=== PATIENT | male | born 1975 | race Two or more races ===

== ENCOUNTER 2021-11-04 12:24 | Inpatient (IN) | payer OTHER ==
[2021-11-04 14:20] VITALS: BMI 24.3
[2021-11-04] MEDS ORDERED: LOPERAMIDE HCL 2 MG CAPSULE PO PRN (18:39)
[2021-11-04] MEDS ORDERED: BENZOCAINE/MENTHOL (CHLORASEPTIC ) LOZENGE MM PRN (18:39)
[2021-11-04] MEDS ORDERED: DICYCLOMINE HCL 10 MG CAPSULE PO PRN (18:39)
[2021-11-04] MEDS ORDERED: MAG HYDROX/AL HYDROX/SIMETH 30 ML UNIT-DOSE CUP PO PRN (18:39)
[2021-11-04] MEDS ORDERED: IBUPROFEN 400 MG TABLET (FP) PO PRN (18:39)
[2021-11-04] MEDS ORDERED: NICOTINE 10 MG CARTRIDGE (INHALER) IH PRN (18:39)
[2021-11-04] MEDS ORDERED: MAGNESIUM CITRATE 300 ML BOTTLE PO PRN (18:39)
[2021-11-04] MEDS ORDERED: methaDONE HCL 10 MG TABLET (FOR DETOX USE ONLY) PO ONE (18:39)
[2021-11-04] MEDS ORDERED: BISMUTH SUBSALICYLATE 524 MG/30 ML PO PRN (18:39)
[2021-11-04] MEDS ORDERED: ONDANSETRON *ODT* 4 MG TABLET SL PRN (18:39)
[2021-11-04] MEDS ORDERED: NALOXONE HCL (KLOXXADO) 8 MG SPRAY NS PRN (18:39)
[2021-11-04] MEDS ORDERED: ACETAMINOPHEN 325 MG TABLET (FP) PO PRN ×2 (18:39)
[2021-11-04] MEDS ORDERED: NICOTINE POLACRILEX 2 MG GUM BUC PRN (18:39)
[2021-11-04] MEDS ORDERED: cloNIDine HCL 0.1 MG TABLET PO PRN (18:39)
[2021-11-04] MEDS ORDERED: IBUPROFEN 600 MG TABLET (FP) PO PRN (18:39)
[2021-11-04] MEDS ORDERED: MAGNESIUM HYDROX 2400MG/30ML ORAL SUSPENSION 30 ML CUP PO PRN (18:39)
[2021-11-04] MEDS ORDERED: METHOCARBAMOL 500 MG TABLET PO PRN (18:39)
[2021-11-04] MEDS: PRENATAL VITAMINS W/ FOLIC ACID TABLET (FP) PO SCH (19:27)
[2021-11-04] MEDS ORDERED: MELATONIN 5 MG TABLETS PO SCH (22:00)
[2021-11-04] MEDS ORDERED: THIAMINE HCL 100 MG TABLET (FP) PO SCH (22:00)
[2021-11-04] MEDS: hydrOXYzine PAMOATE 25 MG CAPSULE (FP) PO SCH (22:52)
[2021-11-05] MEDS: hydrOXYzine PAMOATE 25 MG CAPSULE (FP) PO SCH ×3 (06:23→15:16)
[2021-11-05 09:59] VITALS: RESP 18
[2021-11-05] MEDS: PRENATAL VITAMINS W/ FOLIC ACID TABLET (FP) PO SCH (10:23)
[2021-11-05 10:56] LABS: ALBUMIN 3.8 g/dl (3.4-5.0); BLOOD UREA NITROGEN 13.8 mg/dL (7-18); CALCIUM 9.3 mg/dL (8.5-10.1)
[2021-11-05 11:00] LABS: BILIRUBIN,TOTAL 0.3 mg/dL (0.2-1); HEMATOCRIT 42.3 % (35.4-49); HEMOGLOBIN 13.8 GM/dL (11.7-16.9); MCHC 32.5 g/dl (32.0-35.9); MEAN PLT VOLUME 9.1 fl (7.5-11.1); PLATELET COUNT 254 10^3/uL (134-434); RDW 14.8 % (11.9-15.9); TOT PROT 6.7 g/dl (6.4-8.2); WHITE BLOOD COUNT 7.1 K/mm3 (4.0-10.0)
[2021-11-05 14:02] VITALS: BP 104/53; PULSE 57; TEMP 97.4
[2021-11-06] MEDS ORDERED: methaDONE HCL 10 MG TABLET (FOR DETOX USE ONLY) PO ONE (10:00)
[2021-11-08] MEDS ORDERED: methaDONE HCL 10 MG TABLET (FOR DETOX USE ONLY) PO ONE (10:00)
== END 2021-11-05 17:46 | disposition left against medical advice (07) | DRG 770 ==
LOC: YASAS 12:24 → Y6N 18:30
PROVIDERS: ADMIT Allergy & Immunology; ATTEND Surgery
PROC: HZ2ZZZZ Detoxification Services for Substance Abuse Treatment (ICD-10-PCS; principal; 2021-11-04)
DX: F11.23 Opioid dependence with withdrawal (principal); F12.20 Cannabis dependence, uncomplicated; F17.210 Nicotine dependence, cigarettes, uncomplicated
CPT/HCPCS: 36415; 80053; 85027; 86780; C9803-CS; U0003; U0005

== ENCOUNTER 2021-12-06 12:04 | Inpatient (IN) | payer OTHER ==
[2021-12-06 12:59] VITALS: BMI 25.7
[2021-12-06] MEDS ORDERED: IBUPROFEN 400 MG TABLET (FP) PO PRN (14:50)
[2021-12-06] MEDS ORDERED: ACETAMINOPHEN 325 MG TABLET (FP) PO PRN ×2 (14:50)
[2021-12-06] MEDS ORDERED: MAGNESIUM CITRATE 300 ML BOTTLE PO PRN (14:50)
[2021-12-06] MEDS ORDERED: cloNIDine HCL 0.1 MG TABLET PO PRN (14:50)
[2021-12-06] MEDS ORDERED: BISMUTH SUBSALICYLATE 524 MG/30 ML PO PRN (14:50)
[2021-12-06] MEDS ORDERED: NALOXONE HCL (KLOXXADO) 8 MG SPRAY NS PRN (14:50)
[2021-12-06] MEDS ORDERED: DICYCLOMINE HCL 10 MG CAPSULE PO PRN (14:50)
[2021-12-06] MEDS ORDERED: MAG HYDROX/AL HYDROX/SIMETH 30 ML UNIT-DOSE CUP PO PRN (14:50)
[2021-12-06] MEDS ORDERED: BENZOCAINE/MENTHOL (CHLORASEPTIC ) LOZENGE MM PRN (14:50)
[2021-12-06] MEDS ORDERED: MAGNESIUM HYDROX 2400MG/30ML ORAL SUSPENSION 30 ML CUP PO PRN (14:50)
[2021-12-06] MEDS ORDERED: IBUPROFEN 600 MG TABLET (FP) PO PRN (14:50)
[2021-12-06] MEDS ORDERED: NICOTINE 10 MG CARTRIDGE (INHALER) IH PRN (14:50)
[2021-12-06] MEDS ORDERED: methaDONE HCL 10 MG TABLET (FOR DETOX USE ONLY) PO ONE (14:50)
[2021-12-06] MEDS ORDERED: LOPERAMIDE HCL 2 MG CAPSULE PO PRN (14:50)
[2021-12-06] MEDS: MELATONIN 5 MG TABLETS PO SCH (22:40)
[2021-12-06] MEDS: THIAMINE HCL 100 MG TABLET (FP) PO SCH ×2 (22:40→22:45)
[2021-12-07] MEDS: METHOCARBAMOL 500 MG TABLET PO PRN (09:48)
[2021-12-07] MEDS: PRENATAL VITAMINS W/ FOLIC ACID TABLET (FP) PO SCH (09:48)
[2021-12-07 13:28] LABS: BLOOD UREA NITROGEN 10.6 mg/dL (7-18); CALCIUM 8.6 mg/dL (8.5-10.1)
[2021-12-07 13:32] LABS: CREATININE 0.7 mg/dL (0.55-1.3)
[2021-12-07 13:33] LABS: BILIRUBIN,TOTAL 0.3 mg/dL (0.2-1); TOT PROT 5.5 g/dl (6.4-8.2)
[2021-12-07 13:48] LABS: HEMATOCRIT 37.5 % (35.4-49); MCH 26.9 pg (25.7-33.7); MCHC 32.1 g/dl (32.0-35.9); MEAN CELL VOLUME 83.7 fl (80-96); MEAN PLT VOLUME 9.1 fl (7.5-11.1); PLATELET COUNT 233 10^3/uL (134-434); RBC 4.48 M/mm3 (4.00-5.60); RDW 15.3 % (11.9-15.9); WHITE BLOOD COUNT 7.9 K/mm3 (4.0-10.0)
[2021-12-07] MEDS: MELATONIN 5 MG TABLETS PO SCH (23:12)
[2021-12-07] MEDS: THIAMINE HCL 100 MG TABLET (FP) PO SCH (23:12)
[2021-12-08] MEDS ORDERED: methaDONE HCL 10 MG TABLET (FOR DETOX USE ONLY) PO ONE (10:00)
[2021-12-08] MEDS: PRENATAL VITAMINS W/ FOLIC ACID TABLET (FP) PO SCH (10:16)
[2021-12-08] MEDS: METHOCARBAMOL 500 MG TABLET PO PRN (10:16)
[2021-12-08] MEDS: THIAMINE HCL 100 MG TABLET (FP) PO SCH (21:55)
[2021-12-08] MEDS: MELATONIN 5 MG TABLETS PO SCH (22:58)
[2021-12-09] MEDS: PRENATAL VITAMINS W/ FOLIC ACID TABLET (FP) PO SCH (10:32)
[2021-12-09] MEDS: THIAMINE HCL 100 MG TABLET (FP) PO SCH (22:49)
[2021-12-09] MEDS: MELATONIN 5 MG TABLETS PO SCH (22:50)
[2021-12-10] MEDS ORDERED: methaDONE HCL 10 MG TABLET (FOR DETOX USE ONLY) PO ONE (10:00)
[2021-12-10] MEDS: PRENATAL VITAMINS W/ FOLIC ACID TABLET (FP) PO SCH (10:20)
[2021-12-10] MEDS: THIAMINE HCL 100 MG TABLET (FP) PO SCH (22:27)
[2021-12-10] MEDS: MELATONIN 5 MG TABLETS PO SCH (22:28)
[2021-12-11 09:04] VITALS: BP 118/61; PULSE 58; RESP 18; TEMP 98.2
[2021-12-11] MEDS: PRENATAL VITAMINS W/ FOLIC ACID TABLET (FP) PO SCH (09:19)
== END 2021-12-11 09:30 | disposition home or self-care (01) | DRG 773 ==
LOC: YASAS 12:04 → Y3N 14:56
PROVIDERS: ADMIT Allergy & Immunology; ATTEND Surgery
PROC: HZ2ZZZZ Detoxification Services for Substance Abuse Treatment (ICD-10-PCS; principal; 2021-12-06)
DX: F11.23 Opioid dependence with withdrawal (principal); F12.20 Cannabis dependence, uncomplicated; F17.210 Nicotine dependence, cigarettes, uncomplicated; F41.9 Anxiety disorder, unspecified
CPT/HCPCS: 36415; 80053; 85027; 86780; 87811; 93005; 93010; C9803-CS; U0003; U0005

== ENCOUNTER 2022-01-05 10:04 | Inpatient (IN) | payer OTHER ==
[2022-01-05 11:47] VITALS: BMI 28.5
[2022-01-05] MEDS ORDERED: NALOXONE HCL (KLOXXADO) 8 MG SPRAY NS PRN (11:55)
[2022-01-05] MEDS ORDERED: NICOTINE 10 MG CARTRIDGE (INHALER) IH PRN (11:55)
[2022-01-05] MEDS ORDERED: DICYCLOMINE HCL 10 MG CAPSULE PO PRN (11:55)
[2022-01-05] MEDS ORDERED: BISMUTH SUBSALICYLATE 262 MG/15 ML BTL PO PRN (11:55)
[2022-01-05] MEDS ORDERED: MAGNESIUM HYDROX 2400MG/30ML ORAL SUSPENSION 30 ML CUP PO PRN (11:55)
[2022-01-05] MEDS ORDERED: POLYETHYLENE GLYCOL (HEALTHYLAX) 3350 17 GM PACKET PO PRN (11:55)
[2022-01-05] MEDS ORDERED: IBUPROFEN 600 MG TABLET (FP) PO PRN (11:55)
[2022-01-05] MEDS ORDERED: BENZOCAINE/MENTHOL (CHLORASEPTIC ) LOZENGE MM PRN (11:55)
[2022-01-05] MEDS ORDERED: methaDONE HCL 10 MG TABLET (FOR DETOX USE ONLY) PO ONE (11:55)
[2022-01-05] MEDS ORDERED: LOPERAMIDE HCL 2 MG CAPSULE PO PRN (11:55)
[2022-01-05] MEDS ORDERED: hydrOXYzine PAMOATE 25 MG CAPSULE (FP) PO PRN (11:55)
[2022-01-05] MEDS ORDERED: MAG HYDROX/AL HYDROX/SIMETH 30 ML UNIT-DOSE CUP PO PRN (11:55)
[2022-01-05] MEDS ORDERED: METHOCARBAMOL 500 MG TABLET PO PRN (11:55)
[2022-01-05] MEDS ORDERED: IBUPROFEN 400 MG TABLET (FP) PO PRN (11:55)
[2022-01-05] MEDS ORDERED: cloNIDine HCL 0.1 MG TABLET PO PRN (11:55)
[2022-01-05] MEDS ORDERED: ACETAMINOPHEN 325 MG TABLET (FP) PO PRN ×2 (11:55)
[2022-01-05] MEDS ORDERED: ONDANSETRON *ODT* 4 MG TABLET SL PRN (11:55)
[2022-01-05] MEDS ORDERED: methaDONE HCL 10 MG TABLET (FOR DETOX USE ONLY) ONE (12:51)
[2022-01-05] MEDS: CEPHALEXIN MONOHYDRATE 500 MG CAPSULE (UD) PO SCH ×2 (13:42→22:17)
[2022-01-05] MEDS: PRENATAL VITAMINS W/ FOLIC ACID TABLET (FP) PO SCH (13:42)
[2022-01-05] MEDS: NICOTINE POLACRILEX 4 MG GUM BUC PRN ×2 (17:23→23:12)
[2022-01-05 18:38] LABS: ALBUMIN 3.7 g/dl (3.4-5.0); BLOOD UREA NITROGEN 11.3 mg/dL (7-18); CALCIUM 8.9 mg/dL (8.5-10.1)
[2022-01-05 18:41] LABS: CREATININE 0.9 mg/dL (0.55-1.3); HEMATOCRIT 40.7 % (35.4-49); HEMOGLOBIN 13.4 GM/dL (11.7-16.9); MCH 27.6 pg (25.7-33.7); MCHC 32.9 g/dl (32.0-35.9); MEAN PLT VOLUME 8.7 fl (7.5-11.1); PLATELET COUNT 287 10^3/uL (134-434); RBC 4.85 M/mm3 (4.00-5.60); RDW 15.4 % (11.9-15.9); WHITE BLOOD COUNT 10.7 K/mm3 (4.0-10.0)
[2022-01-05 18:42] LABS: BILIRUBIN,TOTAL 0.2 mg/dL (0.2-1); TOT PROT 6.5 g/dl (6.4-8.2)
[2022-01-05] MEDS: THIAMINE HCL 100 MG TABLET (FP) PO SCH (22:17)
[2022-01-05] MEDS: MELATONIN 5 MG TABLETS PO SCH (22:18)
[2022-01-06] MEDS: CEPHALEXIN MONOHYDRATE 500 MG CAPSULE (UD) PO SCH ×2 (10:03→22:05)
[2022-01-06] MEDS: PRENATAL VITAMINS W/ FOLIC ACID TABLET (FP) PO SCH (10:03)
[2022-01-06] MEDS: MELATONIN 5 MG TABLETS PO SCH (22:05)
[2022-01-06] MEDS: THIAMINE HCL 100 MG TABLET (FP) PO SCH (22:05)
[2022-01-07] MEDS ORDERED: methaDONE HCL 10 MG TABLET (FOR DETOX USE ONLY) PO ONE (10:00)
[2022-01-07] MEDS: PRENATAL VITAMINS W/ FOLIC ACID TABLET (FP) PO SCH (10:12)
[2022-01-07] MEDS: CEPHALEXIN MONOHYDRATE 500 MG CAPSULE (UD) PO SCH ×2 (10:12→22:07)
[2022-01-07] MEDS: THIAMINE HCL 100 MG TABLET (FP) PO SCH (22:07)
[2022-01-07] MEDS: MELATONIN 5 MG TABLETS PO SCH (22:08)
[2022-01-08] MEDS: PRENATAL VITAMINS W/ FOLIC ACID TABLET (FP) PO SCH (10:16)
[2022-01-08] MEDS: CEPHALEXIN MONOHYDRATE 500 MG CAPSULE (UD) PO SCH ×2 (10:16→22:20)
[2022-01-08] MEDS: MELATONIN 5 MG TABLETS PO SCH (22:20)
[2022-01-08] MEDS: THIAMINE HCL 100 MG TABLET (FP) PO SCH (22:20)
[2022-01-09] MEDS ORDERED: methaDONE HCL 10 MG TABLET (FOR DETOX USE ONLY) PO ONE (10:00)
[2022-01-09] MEDS: CEPHALEXIN MONOHYDRATE 500 MG CAPSULE (UD) PO SCH ×2 (10:32→22:12)
[2022-01-09] MEDS: PRENATAL VITAMINS W/ FOLIC ACID TABLET (FP) PO SCH (10:32)
[2022-01-09] MEDS: MELATONIN 5 MG TABLETS PO SCH (22:11)
[2022-01-09] MEDS: THIAMINE HCL 100 MG TABLET (FP) PO SCH (22:12)
[2022-01-10 09:07] VITALS: BP 124/63; PULSE 80; RESP 19; TEMP 98.5
[2022-01-10] MEDS: PRENATAL VITAMINS W/ FOLIC ACID TABLET (FP) PO SCH (09:38)
[2022-01-10] MEDS: CEPHALEXIN MONOHYDRATE 500 MG CAPSULE (UD) PO SCH (09:38)
== END 2022-01-10 09:42 | disposition home or self-care (01) | DRG 773 ==
LOC: YASAS 10:04 → Y3N 12:44
PROVIDERS: ADMIT Allergy & Immunology; ATTEND Surgery
PROC: HZ2ZZZZ Detoxification Services for Substance Abuse Treatment (ICD-10-PCS; principal; 2022-01-05)
DX: F11.23 Opioid dependence with withdrawal (principal); F17.210 Nicotine dependence, cigarettes, uncomplicated; L03.114 Cellulitis of left upper limb
CPT/HCPCS: 36415; 80053; 82947; 83036; 85027; 86780; 87811; C9803-CS; U0003; U0005

== ENCOUNTER 2022-02-04 13:16 | Inpatient (IN) | payer OTHER ==
[2022-02-04] MEDS ORDERED: IBUPROFEN 400 MG TABLET (FP) PO PRN (15:43)
[2022-02-04] MEDS ORDERED: MAGNESIUM HYDROX 2400MG/30ML ORAL SUSPENSION 30 ML CUP PO PRN (15:43)
[2022-02-04] MEDS ORDERED: BENZOCAINE/MENTHOL (CHLORASEPTIC ) LOZENGE MM PRN (15:43)
[2022-02-04] MEDS ORDERED: NICOTINE 21 MG/24 HOURS TOPICAL PATCH TD PRN (15:43)
[2022-02-04] MEDS ORDERED: METHOCARBAMOL 500 MG TABLET PO PRN (15:43)
[2022-02-04] MEDS ORDERED: BISMUTH SUBSALICYLATE 524 MG/30 ML PO PRN (15:43)
[2022-02-04] MEDS ORDERED: DICYCLOMINE HCL 10 MG CAPSULE PO PRN (15:43)
[2022-02-04] MEDS ORDERED: POLYETHYLENE GLYCOL (HEALTHYLAX) 3350 17 GM PACKET PO PRN (15:43)
[2022-02-04] MEDS ORDERED: cloNIDine HCL 0.1 MG TABLET PO PRN (15:43)
[2022-02-04] MEDS ORDERED: methaDONE HCL 10 MG TABLET (FOR DETOX USE ONLY) PO ONE (15:43)
[2022-02-04] MEDS ORDERED: hydrOXYzine PAMOATE 25 MG CAPSULE (FP) PO PRN (15:43)
[2022-02-04] MEDS ORDERED: MAG HYDROX/AL HYDROX/SIMETH 30 ML UNIT-DOSE CUP PO PRN (15:43)
[2022-02-04] MEDS ORDERED: ACETAMINOPHEN 325 MG TABLET (FP) PO PRN ×2 (15:43)
[2022-02-04] MEDS ORDERED: NICOTINE 10 MG CARTRIDGE (INHALER) IH PRN (15:43)
[2022-02-04] MEDS ORDERED: NICOTINE POLACRILEX 4 MG GUM BUC PRN (15:43)
[2022-02-04] MEDS ORDERED: LOPERAMIDE HCL 2 MG CAPSULE PO PRN (15:43)
[2022-02-04] MEDS ORDERED: IBUPROFEN 600 MG TABLET (FP) PO PRN (15:43)
[2022-02-04] MEDS ORDERED: NALOXONE HCL (KLOXXADO) 8 MG SPRAY NS PRN (15:43)
[2022-02-04] MEDS ORDERED: ONDANSETRON *ODT* 4 MG TABLET SL PRN (15:43)
[2022-02-04] MEDS ORDERED: methaDONE HCL 10 MG TABLET (FOR DETOX USE ONLY) ONE (16:37)
[2022-02-04 16:53] VITALS: BMI 27.6
[2022-02-04] MEDS ORDERED: BACITRACIN 15 GM TUBE TOPICAL OINTMENT TP SCH (22:00)
[2022-02-04] MEDS: MELATONIN 5 MG TABLETS PO SCH (22:29)
[2022-02-04] MEDS: THIAMINE HCL 100 MG TABLET (FP) PO SCH (22:29)
[2022-02-04] MEDS: BACITRACIN 0.9 GM PACKET TP SCH (22:55)
[2022-02-05] MEDS: PRENATAL VITAMINS W/ FOLIC ACID TABLET (FP) PO SCH (10:17)
[2022-02-05] MEDS: BACITRACIN 0.9 GM PACKET TP SCH ×2 (10:17→22:11)
[2022-02-05 12:32] LABS: CALCIUM 8.5 mg/dL (8.5-10.1)
[2022-02-05 12:34] LABS: ALBUMIN 2.9 g/dl (3.4-5.0)
[2022-02-05 12:36] LABS: CREATININE 0.8 mg/dL (0.55-1.3)
[2022-02-05 12:38] LABS: BILIRUBIN,TOTAL 0.7 mg/dL (0.2-1); TOT PROT 5.5 g/dl (6.4-8.2)
[2022-02-05 13:28] LABS: HIV INTERPRETATION NEGATIVE (NEGATIVE)
[2022-02-05 13:36] LABS: HEMATOCRIT 43.7 % (35.4-49); HEMOGLOBIN 13.8 GM/dL (11.7-16.9); MCH 26.9 pg (25.7-33.7); MCHC 31.6 g/dl (32.0-35.9); MEAN CELL VOLUME 85.2 fl (80-96); MEAN PLT VOLUME 8.5 fl (7.5-11.1); PLATELET COUNT 278 10^3/uL (134-434); RBC 5.12 M/mm3 (4.00-5.60); WHITE BLOOD COUNT 7.1 K/mm3 (4.0-10.0)
[2022-02-05] MEDS: THIAMINE HCL 100 MG TABLET (FP) PO SCH (22:11)
[2022-02-05] MEDS: MELATONIN 5 MG TABLETS PO SCH (22:11)
[2022-02-06] MEDS ORDERED: methaDONE HCL 10 MG TABLET (FOR DETOX USE ONLY) PO ONE (10:00)
[2022-02-06] MEDS: BACITRACIN 0.9 GM PACKET TP SCH (11:13)
[2022-02-06] MEDS: PRENATAL VITAMINS W/ FOLIC ACID TABLET (FP) PO SCH (11:13)
[2022-02-06 13:14] VITALS: BP 121/59; PULSE 90; RESP 16; TEMP 97.8
[2022-02-08] MEDS ORDERED: methaDONE HCL 10 MG TABLET (FOR DETOX USE ONLY) PO ONE (10:00)
== END 2022-02-06 12:59 | disposition left against medical advice (07) | DRG 770 ==
LOC: YASAS 13:16 → Y3N 16:29
PROVIDERS: ADMIT Allergy & Immunology; ATTEND Surgery
PROC: HZ2ZZZZ Detoxification Services for Substance Abuse Treatment (ICD-10-PCS; principal; 2022-02-04)
DX: F11.23 Opioid dependence with withdrawal (principal); F17.213 Nicotine dependence, cigarettes, with withdrawal; R00.0 Tachycardia, unspecified; Z59.00 Homelessness unspecified
CPT/HCPCS: 36415; 80053; 85027; 86780; 87389; C9803-CS; U0003; U0005

== ENCOUNTER 2022-04-04 19:09 | Inpatient (IN) | payer OTHER ==
[2022-04-04 21:13] VITALS: BMI 25.9
[2022-04-04] MEDS ORDERED: METHOCARBAMOL 500 MG TABLET PO PRN (22:34)
[2022-04-04] MEDS ORDERED: IBUPROFEN 600 MG TABLET (FP) PO PRN (22:34)
[2022-04-04] MEDS ORDERED: IBUPROFEN 400 MG TABLET (FP) PO PRN (22:34)
[2022-04-04] MEDS ORDERED: MAG HYDROX/AL HYDROX/SIMETH 30 ML UNIT-DOSE CUP PO PRN (22:34)
[2022-04-04] MEDS ORDERED: POLYETHYLENE GLYCOL (HEALTHYLAX) 3350 17 GM PACKET PO PRN (22:34)
[2022-04-04] MEDS ORDERED: BENZOCAINE/MENTHOL (CHLORASEPTIC ) LOZENGE MM PRN (22:34)
[2022-04-04] MEDS ORDERED: DICYCLOMINE HCL 10 MG CAPSULE PO PRN (22:34)
[2022-04-04] MEDS ORDERED: BISMUTH SUBSALICYLATE 524 MG/30 ML PO PRN (22:34)
[2022-04-04] MEDS ORDERED: LOPERAMIDE HCL 2 MG CAPSULE PO PRN (22:34)
[2022-04-04] MEDS ORDERED: ACETAMINOPHEN 325 MG TABLET (FP) PO PRN ×2 (22:34)
[2022-04-04] MEDS ORDERED: MAGNESIUM HYDROX 2400MG/30ML ORAL SUSPENSION 30 ML CUP PO PRN (22:34)
[2022-04-04] MEDS ORDERED: ONDANSETRON *ODT* 4 MG TABLET SL PRN (22:34)
[2022-04-04] MEDS ORDERED: NICOTINE POLACRILEX 2 MG GUM BUC PRN (22:34)
[2022-04-04] MEDS ORDERED: NALOXONE HCL (KLOXXADO) 8 MG SPRAY NS PRN (22:34)
[2022-04-05] MEDS ORDERED: cloNIDine HCL 0.1 MG TABLET PO PRN (09:18)
[2022-04-05] MEDS ORDERED: P-EPHED 60MG/TRIPROLIDI 2.5MG TABLET PO PRN (09:19)
[2022-04-05] MEDS ORDERED: PRENATAL VITAMINS W/ FOLIC ACID TABLET (FP) PO SCH (10:00)
[2022-04-05] MEDS ORDERED: methaDONE HCL 10 MG TABLET (FOR DETOX USE ONLY) PO ONE (10:00)
[2022-04-05] MEDS ORDERED: NICOTINE 14 MG/24 HOURS TOPICAL PATCH TD SCH (10:00)
[2022-04-05 12:24] LABS: HEMATOCRIT 42.6 % (35.4-49); HEMOGLOBIN 14.3 GM/dL (11.7-16.9); MCH 27.6 pg (25.7-33.7); MCHC 33.6 g/dl (32.0-35.9); MEAN CELL VOLUME 82.2 fl (80-96); MEAN PLT VOLUME 8.6 fl (7.5-11.1); PLATELET COUNT 291 10^3/uL (134-434); RBC 5.18 M/mm3 (4.00-5.60); WHITE BLOOD COUNT 9.4 K/mm3 (4.0-10.0)
[2022-04-05 12:42] LABS: ALBUMIN 3.4 g/dl (3.4-5.0); BLOOD UREA NITROGEN 16.2 mg/dL (7-18); CALCIUM 8.8 mg/dL (8.5-10.1)
[2022-04-05 12:47] LABS: BILIRUBIN,TOTAL 0.3 mg/dL (0.2-1); TOT PROT 6.8 g/dl (6.4-8.2)
[2022-04-05] MEDS ORDERED: MELATONIN 5 MG TABLETS PO SCH (22:00)
[2022-04-05] MEDS ORDERED: THIAMINE HCL 100 MG TABLET (FP) PO SCH (22:00)
[2022-04-06 06:35] VITALS: RESP 17
[2022-04-06 08:42] VITALS: BP 140/77; PULSE 71; TEMP 96.6
[2022-04-07] MEDS ORDERED: methaDONE HCL 10 MG TABLET (FOR DETOX USE ONLY) PO ONE (10:00)
[2022-04-09] MEDS ORDERED: methaDONE HCL 10 MG TABLET (FOR DETOX USE ONLY) PO ONE (10:00)
== END 2022-04-06 09:19 | disposition left against medical advice (07) | DRG 770 ==
LOC: YASAS 19:09 → UNDOADMIN 22:44 → Y3N 22:44 → UNDOADMIN 04-05 10:00 → Y3N 04-05 10:00
PROVIDERS: ADMIT Allergy & Immunology; ATTEND Surgery
PROC: HZ2ZZZZ Detoxification Services for Substance Abuse Treatment (ICD-10-PCS; principal; 2022-04-03)
DX: F11.23 Opioid dependence with withdrawal (principal); F12.20 Cannabis dependence, uncomplicated; F17.210 Nicotine dependence, cigarettes, uncomplicated
CPT/HCPCS: 36415; 80053; 85027; 86780; C9803-CS; U0003; U0005

== ENCOUNTER 2023-03-11 11:38 | Inpatient (IN) | payer OTHER ==
[2023-03-11 12:00] VITALS: BMI 24.5
[2023-03-11] MEDS ORDERED: NALOXONE HCL 0.4 MG/ML VIAL IM PRN (12:21)
[2023-03-11] MEDS ORDERED: POLYETHYLENE GLYCOL (HEALTHYLAX) 3350 17 GM PACKET PO PRN (12:21)
[2023-03-11] MEDS ORDERED: METHOCARBAMOL 500 MG TABLET PO PRN (12:21)
[2023-03-11] MEDS ORDERED: BENZONATATE 200 MG CAPSULE PO PRN (12:21)
[2023-03-11] MEDS ORDERED: MAG HYDROX/AL HYDROX/SIMETH 30 ML UNIT-DOSE CUP PO PRN (12:21)
[2023-03-11] MEDS ORDERED: guaiFENesin 600 MG TABLET.ER (FP) PO PRN (12:21)
[2023-03-11] MEDS ORDERED: ONDANSETRON *ODT* 4 MG TABLET SL PRN (12:21)
[2023-03-11] MEDS ORDERED: clonazePAM 0.5 MG ODT TABLETS SL PRN (12:21)
[2023-03-11] MEDS ORDERED: LOPERAMIDE HCL 2 MG CAPSULE PO PRN (12:21)
[2023-03-11] MEDS ORDERED: IBUPROFEN 600 MG TABLET (FP) PO PRN (12:21)
[2023-03-11] MEDS ORDERED: IBUPROFEN 400 MG TABLET (FP) PO PRN (12:21)
[2023-03-11] MEDS ORDERED: DICYCLOMINE HCL 10 MG CAPSULE PO PRN (12:21)
[2023-03-11] MEDS ORDERED: NALOXONE HCL (KLOXXADO) 8 MG SPRAY NS PRN (12:21)
[2023-03-11] MEDS ORDERED: cloNIDine HCL 0.1 MG TABLET PO PRN (12:21)
[2023-03-11] MEDS ORDERED: MAGNESIUM HYDROX 2400MG/30ML ORAL SUSPENSION 30 ML CUP PO PRN (12:21)
[2023-03-11] MEDS ORDERED: BISMUTH SUBSALICYLATE 524 MG/30 ML PO PRN (12:21)
[2023-03-11] MEDS ORDERED: hydrOXYzine PAMOATE 25 MG CAPSULE (FP) PO PRN (12:21)
[2023-03-11] MEDS ORDERED: ACETAMINOPHEN 325 MG TABLET (FP) PO PRN (12:21)
[2023-03-11] MEDS ORDERED: NICOTINE POLACRILEX 2 MG GUM BUC PRN (12:21)
[2023-03-11] MEDS ORDERED: BENZOCAINE/MENTHOL (CHLORASEPTIC ) LOZENGE MM PRN (12:21)
[2023-03-11] MEDS ORDERED: methaDONE HCL 10 MG TABLET (FOR DETOX USE ONLY) PO ONE (13:15)
[2023-03-11] MEDS ORDERED: methaDONE HCL 10 MG TABLET (FOR DETOX USE ONLY) ONE (13:56)
[2023-03-11] MEDS ORDERED: PRENATAL VITAMINS W/ FOLIC ACID TABLET (FP) PO ONE (13:56)
[2023-03-11] MEDS: PRENATAL VITAMINS W/ FOLIC ACID TABLET (FP) PO SCH (14:01)
[2023-03-11] MEDS ORDERED: ONDANSETRON *ODT* 4 MG TABLET ONE (14:15)
[2023-03-11] MEDS: THIAMINE HCL 100 MG TABLET (FP) PO SCH (22:48)
[2023-03-11] MEDS: MELATONIN 5 MG TABLETS PO SCH (22:48)
[2023-03-12] MEDS: PRENATAL VITAMINS W/ FOLIC ACID TABLET (FP) PO SCH (10:02)
[2023-03-12 10:37] LABS: HEMATOCRIT 42.9 % (35.4-49); HEMOGLOBIN 13.8 GM/dL (11.7-16.9); MCH 26.6 pg (25.7-33.7); MCHC 32.2 g/dl (32.0-35.9); MEAN CELL VOLUME 82.7 fl (80-96); MEAN PLT VOLUME 8.7 fl (7.5-11.1); PLATELET COUNT 292 10^3/uL (134-434); RBC 5.19 M/mm3 (4.00-5.60); WHITE BLOOD COUNT 9.1 K/mm3 (4.0-10.0)
[2023-03-12 11:11] LABS: POTASSIUM 4.6 mmol/L (3.5-5.1)
[2023-03-12 11:22] LABS: BLOOD UREA NITROGEN 14.2 mg/dL (7-18)
[2023-03-12 11:25] LABS: CREATININE 0.8 mg/dL (0.55-1.3)
[2023-03-12 11:26] LABS: BILIRUBIN,TOTAL 0.2 mg/dL (0.2-1)
[2023-03-12] MEDS ORDERED: FLU VACCINE (FLULAVAL) PF 60 MCG/0.5 ML SYRINGE 2023-2024 IM ONE (13:50)
[2023-03-12] MEDS: MELATONIN 5 MG TABLETS PO SCH (23:48)
[2023-03-12] MEDS: THIAMINE HCL 100 MG TABLET (FP) PO SCH (23:48)
[2023-03-13] MEDS ORDERED: methaDONE HCL 10 MG TABLET (FOR DETOX USE ONLY) PO ONE (10:00)
[2023-03-13] MEDS: PRENATAL VITAMINS W/ FOLIC ACID TABLET (FP) PO SCH (10:10)
[2023-03-13 13:08] VITALS: BP 142/73; PULSE 83; RESP 16; TEMP 97.4
[2023-03-15] MEDS ORDERED: methaDONE HCL 10 MG TABLET (FOR DETOX USE ONLY) PO ONE (10:00)
== END 2023-03-13 14:15 | disposition left against medical advice (07) | DRG 770 ==
LOC: YASAS 11:38 → Y3N 13:36 → Y6N 13:38
PROVIDERS: ADMIT Allergy & Immunology; ATTEND Allergy & Immunology
PROC: HZ2ZZZZ Detoxification Services for Substance Abuse Treatment (ICD-10-PCS; principal; 2023-03-11)
DX: F11.23 Opioid dependence with withdrawal (principal); F12.10 Cannabis abuse, uncomplicated; F17.210 Nicotine dependence, cigarettes, uncomplicated; Z59.02 Unsheltered homelessness
CPT/HCPCS: 36415; 80053; 85027; 86780; 87635; 93005; 93010; Q0162

== ENCOUNTER 2023-06-27 01:13 | Inpatient (IN) | payer OTHER ==
[2023-06-27 02:46] VITALS: BMI 27.0
[2023-06-27] MEDS ORDERED: hydrOXYzine PAMOATE 25 MG CAPSULE (FP) PO PRN (03:39)
[2023-06-27] MEDS ORDERED: MAGNESIUM HYDROX 2400MG/30ML ORAL SUSPENSION 30 ML CUP PO PRN (03:39)
[2023-06-27] MEDS ORDERED: METHOCARBAMOL 500 MG TABLET PO PRN (03:39)
[2023-06-27] MEDS ORDERED: BENZONATATE 200 MG CAPSULE PO PRN (03:39)
[2023-06-27] MEDS ORDERED: BISMUTH SUBSALICYLATE 524 MG/30 ML PO PRN (03:39)
[2023-06-27] MEDS ORDERED: BENZOCAINE/MENTHOL (CHLORASEPTIC ) LOZENGE MM PRN (03:39)
[2023-06-27] MEDS ORDERED: MAG HYDROX/AL HYDROX/SIMETH 30 ML UNIT-DOSE CUP PO PRN (03:39)
[2023-06-27] MEDS ORDERED: IBUPROFEN 600 MG TABLET (FP) PO PRN (03:39)
[2023-06-27] MEDS ORDERED: NICOTINE POLACRILEX 4 MG GUM BUC PRN (03:39)
[2023-06-27] MEDS ORDERED: ACETAMINOPHEN 325 MG TABLET (FP) PO PRN (03:39)
[2023-06-27] MEDS ORDERED: IBUPROFEN 400 MG TABLET (FP) PO PRN (03:39)
[2023-06-27] MEDS ORDERED: NALOXONE HCL 0.4 MG/ML VIAL IM PRN (03:39)
[2023-06-27] MEDS ORDERED: POLYETHYLENE GLYCOL (HEALTHYLAX) 3350 17 GM PACKET PO PRN (03:39)
[2023-06-27] MEDS ORDERED: DICYCLOMINE HCL 10 MG CAPSULE PO PRN (03:39)
[2023-06-27] MEDS ORDERED: guaiFENesin 600 MG TABLET.ER (FP) PO PRN (03:39)
[2023-06-27] MEDS ORDERED: NALOXONE HCL (KLOXXADO) 8 MG SPRAY NS PRN (03:39)
[2023-06-27] MEDS ORDERED: LOPERAMIDE HCL 2 MG CAPSULE PO PRN (03:39)
[2023-06-27] MEDS: ONDANSETRON *ODT* 4 MG TABLET SL PRN (08:58)
[2023-06-27] MEDS ORDERED: methaDONE HCL 10 MG TABLET (FOR DETOX USE ONLY) ONE (09:02)
[2023-06-27] MEDS ORDERED: ONDANSETRON *ODT* 4 MG TABLET ONE (09:03)
[2023-06-27] MEDS: methaDONE HCL 10 MG TABLET PO ONE (09:10)
[2023-06-27] MEDS: cloNIDine HCL 0.1 MG TABLET PO SCH (09:41)
[2023-06-27] MEDS: NICOTINE 21 MG/24 HOURS TOPICAL PATCH TD SCH (09:41)
[2023-06-27] MEDS: PRENATAL VITAMINS W/ FOLIC ACID TABLET (FP) PO SCH (09:41)
[2023-06-27] MEDS ORDERED: PRENATAL VITAMINS W/ FOLIC ACID TABLET (FP) PO ONE (09:43)
[2023-06-27] MEDS ORDERED: cloNIDine HCL 0.1 MG TABLET ONE (09:43)
[2023-06-27] MEDS ORDERED: NICOTINE 21 MG/24 HOURS TOPICAL PATCH ONE (09:43)
[2023-06-27] MEDS ORDERED: methaDONE HCL 10 MG TABLET PO PRN (10:34)
[2023-06-27] MEDS: MELATONIN 5 MG TABLETS PO SCH (22:22)
[2023-06-27] MEDS: THIAMINE 100 MG TABLET PO SCH (22:22)
[2023-06-28] MEDS: methaDONE 40 MG, methaDONE 10 MG PO ONE (10:01)
[2023-06-28 11:51] LABS: POTASSIUM 4.7 mmol/L (3.5-5.1)
[2023-06-28 11:56] LABS: HEMATOCRIT 41.2 % (35.4-49); HEMOGLOBIN 13.5 GM/dL (11.7-16.9); MCH 27.3 pg (25.7-33.7); MCHC 32.9 g/dl (32.0-35.9); MEAN CELL VOLUME 83.2 fl (80-96); PLATELET COUNT 259 10^3/uL (134-434); RBC 4.95 M/mm3 (4.00-5.60); RDW 14.8 % (11.9-15.9); WHITE BLOOD COUNT 8.8 K/mm3 (4.0-10.0)
[2023-06-28 12:15] LABS: ALBUMIN 3.4 g/dl (3.4-5.0); BLOOD UREA NITROGEN 13.7 mg/dL (7-18)
[2023-06-28 12:18] LABS: CREATININE 0.9 mg/dL (0.55-1.3)
[2023-06-28 12:20] LABS: BILIRUBIN,TOTAL 0.2 mg/dL (0.2-1); TOT PROT 6.4 g/dl (6.4-8.2)
[2023-06-29] MEDS ORDERED: cloNIDine HCL 0.1 MG TABLET PO PRN
[2023-06-29] MEDS: methaDONE 40 MG, methaDONE 20 MG PO ONE (09:58)
[2023-06-30] MEDS: methaDONE 40 MG, methaDONE 30 MG PO ONE (10:09)
[2023-07-01] MEDS: methaDONE HCL 40 MG DISPERSABLE TABLET PO ONE (10:33)
[2023-07-02 09:26] VITALS: BP 158/72; PULSE 79; RESP 16; TEMP 97.1
[2023-07-02] MEDS ORDERED: methaDONE 80 MG, methaDONE 10 MG PO ONE (10:00)
== END 2023-07-02 09:50 | disposition home or self-care (01) | DRG 773 ==
LOC: YASAS 01:13 → Y3N 09:12
PROVIDERS: ADMIT Allergy & Immunology; ATTEND Surgery
PROC: HZ2ZZZZ Detoxification Services for Substance Abuse Treatment (ICD-10-PCS; principal; 2023-06-27)
DX: F11.23 Opioid dependence with withdrawal (principal); F12.20 Cannabis dependence, uncomplicated; F17.213 Nicotine dependence, cigarettes, with withdrawal; F19.94 Other psychoactive substance use, unspecified with psychoactive substance-induced mood disorder; Z56.0 Unemployment, unspecified; Z59.00 Homelessness unspecified
CPT/HCPCS: 36415; 80053; 80305; 80307; 85027; 86780; 93005; 93010; Q0162

== ENCOUNTER 2023-08-14 23:32 | Inpatient (IN) | payer OTHER ==
[2023-08-15 00:01] VITALS: BMI 24.4
[2023-08-15] MEDS ORDERED: DICYCLOMINE HCL 10 MG CAPSULE PO PRN (01:20)
[2023-08-15] MEDS ORDERED: IBUPROFEN 400 MG TABLET (FP) PO PRN (01:20)
[2023-08-15] MEDS ORDERED: BENZOCAINE/MENTHOL (CHLORASEPTIC ) LOZENGE MM PRN (01:20)
[2023-08-15] MEDS ORDERED: ONDANSETRON *ODT* 4 MG TABLET SL PRN (01:20)
[2023-08-15] MEDS ORDERED: guaiFENesin 600 MG TABLET.ER (FP) PO PRN (01:20)
[2023-08-15] MEDS ORDERED: IBUPROFEN 600 MG TABLET (FP) PO PRN (01:20)
[2023-08-15] MEDS ORDERED: MAG HYDROX/AL HYDROX/SIMETH 30 ML UNIT-DOSE CUP PO PRN (01:20)
[2023-08-15] MEDS ORDERED: BENZONATATE 200 MG CAPSULE PO PRN (01:20)
[2023-08-15] MEDS ORDERED: NICOTINE POLACRILEX 4 MG GUM BUC PRN (01:20)
[2023-08-15] MEDS ORDERED: LOPERAMIDE HCL 2 MG CAPSULE PO PRN (01:20)
[2023-08-15] MEDS ORDERED: POLYETHYLENE GLYCOL (HEALTHYLAX) 3350 17 GM PACKET PO PRN (01:20)
[2023-08-15] MEDS ORDERED: MAGNESIUM HYDROX 2400MG/30ML ORAL SUSPENSION 30 ML CUP PO PRN (01:20)
[2023-08-15] MEDS ORDERED: ACETAMINOPHEN 325 MG TABLET (FP) PO PRN (01:20)
[2023-08-15] MEDS ORDERED: BISMUTH SUBSALICYLATE 524 MG/30 ML PO PRN (01:20)
[2023-08-15] MEDS ORDERED: NALOXONE HCL 0.4 MG/ML VIAL IM PRN (01:20)
[2023-08-15] MEDS ORDERED: NALOXONE (NARCAN) HCL 4 MG/0.1 ML SPRAY NS PRN (01:20)
[2023-08-15] MEDS: PRENATAL VITAMINS W/ FOLIC ACID TABLET (FP) PO SCH (10:29)
[2023-08-15] MEDS: NICOTINE 21 MG/24 HOURS TOPICAL PATCH TD SCH (10:29)
[2023-08-15] MEDS: methaDONE HCL 10 MG TABLET PO ONE (11:25)
[2023-08-15] MEDS: cloNIDine HCL 0.1 MG TABLET PO SCH (13:33)
[2023-08-15] MEDS: methaDONE HCL 10 MG TABLET PO PRN (13:38)
[2023-08-15] MEDS: MELATONIN 5 MG TABLETS PO SCH (22:51)
[2023-08-15] MEDS: THIAMINE 100 MG TABLET PO SCH (22:51)
[2023-08-16] MEDS: methaDONE 40 MG, methaDONE 10 MG PO ONE (09:51)
[2023-08-16 12:01] LABS: CALCIUM 8.8 mg/dL (8.5-10.1)
[2023-08-16 12:02] LABS: ALBUMIN 3.7 g/dl (3.4-5.0)
[2023-08-16 12:06] LABS: BILIRUBIN,TOTAL 0.4 mg/dL (0.2-1); TOT PROT 6.3 g/dl (6.4-8.2)
[2023-08-16 12:23] LABS: HEMATOCRIT 39.9 % (35.4-49); HEMOGLOBIN 13.2 GM/dL (11.7-16.9); MCH 27.4 pg (25.7-33.7); MEAN CELL VOLUME 83.1 fl (80-96); MEAN PLT VOLUME 9.7 fl (7.5-11.1); PLATELET COUNT 205 10^3/uL (134-434); RBC 4.81 M/mm3 (4.00-5.60); RDW 14.1 % (11.9-15.9); WHITE BLOOD COUNT 7.1 K/mm3 (4.0-10.0)
[2023-08-17] MEDS ORDERED: cloNIDine HCL 0.1 MG TABLET PO PRN
[2023-08-17] MEDS: methaDONE 40 MG, methaDONE 20 MG PO ONE (10:24)
[2023-08-18] MEDS: methaDONE 40 MG, methaDONE 30 MG PO ONE (10:16)
[2023-08-18] MEDS: hydrOXYzine PAMOATE 25 MG CAPSULE (FP) PO PRN (22:34)
[2023-08-18] MEDS: METHOCARBAMOL 500 MG TABLET PO PRN (22:34)
[2023-08-19] MEDS: methaDONE HCL 40 MG DISPERSABLE TABLET PO ONE (06:24)
[2023-08-19] MEDS ORDERED: methaDONE HCL 40 MG DISPERSABLE TABLET PO ONE (10:00)
[2023-08-20] MEDS: methaDONE 80 MG, methaDONE 10 MG PO ONE (09:36)
[2023-08-20 13:22] VITALS: RESP 18
[2023-08-21 05:57] VITALS: BP 120/71; PULSE 66; TEMP 98.6
[2023-08-21] MEDS ORDERED: methaDONE HCL 10 MG TABLET PO ONE (10:00)
[2023-08-21] MEDS ORDERED: methaDONE HCL 40 MG DISPERSABLE TABLET PO ONE (10:00)
[2023-08-21] MEDS ORDERED: methaDONE 40 MG, methaDONE 30 MG PO ONE (10:00)
[2023-08-21] MEDS: methaDONE 80 MG, methaDONE 10 MG PO ONE (10:22)
== END 2023-08-21 08:21 | disposition home or self-care (01) | DRG 773 ==
LOC: YASAS 23:32 → Y3N 08-15 01:20
PROVIDERS: ADMIT Allergy & Immunology; ATTEND Allergy & Immunology
PROC: HZ2ZZZZ Detoxification Services for Substance Abuse Treatment (ICD-10-PCS; principal; 2023-08-15)
DX: F11.23 Opioid dependence with withdrawal (principal); F12.20 Cannabis dependence, uncomplicated; F17.210 Nicotine dependence, cigarettes, uncomplicated; F19.24 Other psychoactive substance dependence with psychoactive substance-induced mood disorder; Z91.199 Patient's noncompliance with other medical treatment and regimen due to unspecified reason; Z56.0 Unemployment, unspecified; Z59.00 Homelessness unspecified
CPT/HCPCS: 36415; 80053; 80305; 80307; 85027; 86780

== ENCOUNTER 2023-11-09 19:57 | Inpatient (IN) | payer OTHER ==
[2023-11-09 20:37] VITALS: BMI 25.8
[2023-11-09] MEDS ORDERED: POLYETHYLENE GLYCOL (HEALTHYLAX) 3350 17 GM PACKET PO PRN (20:58)
[2023-11-09] MEDS ORDERED: IBUPROFEN 600 MG TABLET (FP) PO PRN (20:58)
[2023-11-09] MEDS ORDERED: NICOTINE POLACRILEX 2 MG GUM BUC PRN (20:58)
[2023-11-09] MEDS ORDERED: ACETAMINOPHEN 325 MG TABLET (FP) PO PRN (20:58)
[2023-11-09] MEDS ORDERED: NICOTINE POLACRILEX 2 MG LOZENGE BC PRN (20:58)
[2023-11-09] MEDS ORDERED: IBUPROFEN 400 MG TABLET (FP) PO PRN (20:58)
[2023-11-09] MEDS ORDERED: NALOXONE (NARCAN) HCL 4 MG/0.1 ML SPRAY NS PRN (20:58)
[2023-11-09] MEDS ORDERED: BISMUTH SUBSALICYLATE 524 MG/30 ML PO PRN (20:58)
[2023-11-09] MEDS ORDERED: MAGNESIUM HYDROX 2400MG/30ML ORAL SUSPENSION 30 ML CUP PO PRN (20:58)
[2023-11-09] MEDS ORDERED: DICYCLOMINE HCL 10 MG CAPSULE PO PRN (20:58)
[2023-11-09] MEDS ORDERED: NALOXONE HCL 0.4 MG/ML VIAL IM PRN (20:58)
[2023-11-09] MEDS ORDERED: guaiFENesin 600 MG TABLET.ER (FP) PO PRN (20:58)
[2023-11-09] MEDS ORDERED: METHOCARBAMOL 500 MG TABLET PO PRN (20:58)
[2023-11-09] MEDS ORDERED: LOPERAMIDE HCL 2 MG CAPSULE PO PRN (20:58)
[2023-11-09] MEDS ORDERED: BENZOCAINE/MENTHOL (CHLORASEPTIC ) LOZENGE MM PRN (20:58)
[2023-11-09] MEDS ORDERED: BENZONATATE 200 MG CAPSULE PO PRN (20:58)
[2023-11-09] MEDS ORDERED: P-EPHED 60MG/TRIPROLIDI 2.5MG TABLET PO PRN (20:58)
[2023-11-09] MEDS ORDERED: MAG HYDROX/AL HYDROX/SIMETH 30 ML UNIT-DOSE CUP PO PRN (20:58)
[2023-11-09] MEDS ORDERED: ONDANSETRON *ODT* 4 MG TABLET SL PRN (20:58)
[2023-11-09] MEDS: MELATONIN 5 MG TABLETS PO SCH (21:43)
[2023-11-09] MEDS: THIAMINE 100 MG TABLET PO SCH (21:43)
[2023-11-09] MEDS ORDERED: methaDONE HCL 10 MG TABLET PO ONE (22:00)
[2023-11-10 06:33] VITALS: RESP 18
[2023-11-10] MEDS: PRENATAL VITAMINS W/ FOLIC ACID TABLET (FP) PO SCH (09:50)
[2023-11-10] MEDS: methaDONE HCL 10 MG TABLET PO ONE (09:51)
[2023-11-10] MEDS ORDERED: methaDONE HCL 40 MG DISPERSABLE TABLET PO ONE (10:00)
[2023-11-10] MEDS: TRIMETHOBENZAMIDE HCL 200MG/2ML INJ IM ONE (11:02)
[2023-11-10 11:20] LABS: HEMATOCRIT 39.2 % (35.4-49); MCH 27.3 pg (25.7-33.7); MCHC 33.2 g/dl (32.0-35.9); MEAN CELL VOLUME 82.3 fl (80-96); MEAN PLT VOLUME 8.7 fl (7.5-11.1); PLATELET COUNT 229 10^3/uL (134-434); RBC 4.77 M/mm3 (4.00-5.60); RDW 14.3 % (11.9-15.9); WHITE BLOOD COUNT 7.6 K/mm3 (4.0-10.0)
[2023-11-10 11:46] LABS: POTASSIUM 4.6 mmol/L (3.5-5.1)
[2023-11-10 12:05] LABS: ALBUMIN 3.1 g/dl (3.4-5.0); BLOOD UREA NITROGEN 11.2 mg/dL (7-18); CALCIUM 8.9 mg/dL (8.5-10.1)
[2023-11-10 12:09] LABS: BILIRUBIN,TOTAL 0.2 mg/dL (0.2-1); TOT PROT 5.6 g/dl (6.4-8.2)
[2023-11-10 13:05] VITALS: BP 118/61; PULSE 60; TEMP 98.1
[2023-11-10] MEDS ORDERED: diazePAM 5 MG TABLET PO SCH (13:45)
[2023-11-11] MEDS ORDERED: cloNIDine HCL 0.1 MG TABLET PO PRN
[2023-11-11] MEDS ORDERED: methaDONE HCL 40 MG DISPERSABLE TABLET PO ONE (10:00)
[2023-11-12] MEDS ORDERED: methaDONE HCL 40 MG DISPERSABLE TABLET PO ONE (10:00)
[2023-11-12] MEDS ORDERED: methaDONE 40 MG, methaDONE 10 MG PO ONE (10:00)
[2023-11-13] MEDS ORDERED: methaDONE HCL 40 MG DISPERSABLE TABLET PO ONE (10:00)
[2023-11-13] MEDS ORDERED: methaDONE 40 MG, methaDONE 10 MG PO ONE (10:00)
== END 2023-11-10 14:00 | disposition left against medical advice (07) | DRG 770 ==
LOC: YASAS 19:57 → Y3N 21:20
PROVIDERS: ADMIT Allergy & Immunology; ATTEND Surgery
PROC: HZ2ZZZZ Detoxification Services for Substance Abuse Treatment (ICD-10-PCS; principal; 2023-11-09)
DX: F11.23 Opioid dependence with withdrawal (principal); F12.20 Cannabis dependence, uncomplicated; F17.210 Nicotine dependence, cigarettes, uncomplicated; Z59.00 Homelessness unspecified
CPT/HCPCS: 36415; 80053; 80305; 80307; 85027; 86780; 93005; 93010